=== PATIENT | female | born 1990 | race Caucasian/White ===

== ENCOUNTER 2017-06-28 22:51 | Emergency (ER) | payer OTHER ==
[~2017-06-28] VITALS: Ht 172.7 cm; Wt 61.2 kg
[2017-06-28 23:00] VITALS: Ht 172.7 cm; Wt 61.2 kg
[2017-06-29] MEDS ORDERED: HYDR-3011 PO (02:23)
[2017-06-29] MEDS ORDERED: TRIA15CR55 TOP (02:23)
--- NOTE | 2017-06-29 02:39 | ERD ---
ER Documentation Chief Complaint Chief Complaint pt has hx of eczema and having an out break HPI 27-year-old female presents here to emergency department for complaints of rash in upper extremities, was diagnosed to have eczema does not have any medication. Patient is complaining of itching. Patient does not have any fever or chills. Patient does not have any discharge on affected areas. ROS All systems reviewed and are negative except as per history of present illness. 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 CHEST: Clear to auscultation bilaterally. There are no rales, wheezes or rhonchi. HEART: Regular rate and rhythm. No murmurs, clicks, rubs or gallops. No S3 or S4. ABDOMEN: Soft, nontender and nondistended. Good bowel sounds. No rebound or guarding. No gross peritonitis. No gross organomegaly or masses. No Castillo sign or McBurney point tenderness. BACK: No midline or flank tenderness. EXTREMITIES: Equal pulses bilaterally. There is no peripheral clubbing, cyanosis or edema. No focal swelling or erythema. Full range of motion. Grossly neurovascularly intact. NEURO: Alert and oriented. Cranial nerves 2-12 intact. Motor strength in all 4 extremities with 5/5 strength. Sensation grossly intact. Normal speech and gait. SKIN: Noted macular rash in upper extremities with some excoriations and macerations noted. There is no apparent ecchymosis or petechia. The skin is warm and dry. HEMATOLOGIC AND LYMPHATIC: There is no evidence of excessive bruising or lymphedema. No gross cervical, axillary, or inguinal lymphadenopathy. Procedures/MDM Medical decision making: Patient symptoms was likely is consistent with some form of dermatitis, most likely eczema. No symptoms of any allergic reaction, coagulopathies, acute bacterial infection, no symptoms of necrotizing fasciitis , Ervin-Stan syndrome. Prescription was given for her hydroxyzine, triamcinolone cream, is advised to follow-up with assurance specialist for further evaluation of symptoms. Patient was advised to return to emergency department for any worsening symptoms. Disposition: Home. Stable Departure Diagnosis: Primary Impression: Dermatitis Condition: Stable Patient Instructions: Atopic Dermatitis (Eczema) YOAN SANTIAGO NP Jun 29, 2017 02:39
== END 2017-06-29 02:40 | disposition home or self-care (01) ==
LOC: FTE 22:51
DX: L30.9 Dermatitis, unspecified (principal)
CPT/HCPCS: 99284

== ENCOUNTER 2018-04-04 07:39 | Emergency (ER) | END 2018-04-04 10:18 | disposition home or self-care (01) ==